=== PATIENT | male | born 1950 | race Caucasian/White ===

== ENCOUNTER → 2017-06-21 | Outpatient (CLI) | payer MEDICARE, BC | LOC: PLAB 09:24 | PROVIDERS: ATTEND Ophthalmology | DX: H57.12 Ocular pain, left eye (principal) | CPT/HCPCS: 36415; 85652; 86140 ==

== ENCOUNTER 2018-03-10 05:19 | Inpatient (IN) ==
--- NOTE | 2018-03-05 16:28 | MH ---
cc: Gera Phillips MD DATE OF ADMISSION: 03/10/2018 ADMITTING DIAGNOSIS: Osteoarthritic degeneration, right hip, now being admitted for right total hip arthroplasty. HISTORY OF PRESENT ILLNESS: This pleasant 67-year-old male, known diabetic, is being admitted today for right total hip arthroplasty due to severe pain from osteoarthritic degeneration, right hip. PAST MEDICAL HISTORY: He has hypertension, heart disease, hyperlipidemia, type 2 diabetes. CURRENT MEDICATIONS: 1. Amitriptyline. 2. Benzonatate. 3. Breo Ellipta. 4. Diltiazem. 5. Farxiga. 6. Glimepiride. 7. Levofloxacin. 8. Oseltamivir. . 9. Oxycodone. 10. ProAir. 11. Fenofibrate. 12. Atorvastatin. PAST SURGICAL HISTORY: Rotator cuff repair and a bilateral knee replacement. REVIEW OF SYSTEMS: Noncontributory. FAMILY HISTORY: Noncontributory. SOCIAL HISTORY: Does not smoke or drink. ALLERGIES: NO KNOWN ALLERGIES. PHYSICAL EXAMINATION: GENERAL: We find a 67-year-old male, well-developed, well-nourished, oriented x 3, complaining of pain in his right hip. VITAL SIGNS: Blood pressure 130/70, pulse 90 and regular, respirations 16, temperature 98.4, pulse oximetry 97% on room air. HEENT: Eyes PERRLA, EOMI. Ears, nose, mouth clear. NECK: Supple. LUNGS: Clear. HEART: Regular rate. ABDOMEN: Soft, positive bowel sounds, nontender. EXTREMITIES: Reveal the right hip had decreased range of motion. He is neurovascularly intact to his toes. IMPRESSION: Severe painful osteoarthritic degeneration, right hip. PLAN: Admission for right total hip arthroplasty today. The patient was given prescription for postoperative pain control in the office. MD LAWANDA Kahn/tatiana , 04:05 PM , 04:11 PM
[2018-03-10] MEDS ORDERED: Chlorhexidine Gluconate 2% 1 Pack (2 Cloths) TOPICAL ONE (05:56)
[2018-03-10] MEDS ORDERED: Metoprolol Tartrate 25 MG Tablet PO ONE (05:56)
[2018-03-10] MEDS ORDERED: Chlorhexidine 4% Topical 120 APPLIC/120 ML Bottle TOPICAL SCH (06:00)
[2018-03-10] MEDS ORDERED: Sodium Chlor 0.9% Inj 80 ML, Bupivacaine Liposo PF 1.3% Inj 20 ML, Bupivacaine PF 0.25%... P-ARTICULR SCH ×3 (06:00)
[2018-03-10] MEDS ORDERED: SODIUM CHLOR 0.9% IV.SIG SCH (06:00)
[2018-03-10] MEDS ORDERED: ceFAZolin 2 GM Premix Inj 2 GM/50 ML PIGGYBACK IV.SIG SCH (06:00)
[2018-03-10] MEDS ORDERED: Sodium Chlor 0.9% Inj 500 ML IV.SIG SCH (06:00)
[2018-03-10] MEDS ORDERED: TRANEXAMIC ACID IV.SIG SCH (06:00)
[2018-03-10] MEDS ORDERED: Vancomycin Inj 1,000 MG in Sodium Chlor 0.9% Inj 250 ML IV.SIG SCH (06:00)
[2018-03-10] MEDS ORDERED: Bisacodyl 10 MG Supp RECTAL PRN (07:35)
[2018-03-10] MEDS ORDERED: Post-op Orders (for Pharmacy) OTHER STA (07:35)
[2018-03-10] MEDS ORDERED: Morphine Inj 4 MG/ML Vial IV.PUSH PRN (07:35)
[2018-03-10] MEDS ORDERED: Phenylephrine/NS 1000 MCG/10ML Syringe IV.PUSH ONE (07:38)
[2018-03-10] MEDS ORDERED: Neostigmine Inj 5 MG/5 ML Syringe IV.PUSH ONE (07:38)
[2018-03-10] MEDS ORDERED: Glycopyrrolate Inj 1 MG/5 ML Syringe IV.PUSH ONE (07:38)
[2018-03-10] MEDS ORDERED: Lidocaine PF 1% Inj 5 ML Syringe OTHER ONE (07:38)
[2018-03-10] MEDS ORDERED: Esmolol Bolus Inj 100 MG/10 ML Vial IV.PUSH ONE (07:38)
[2018-03-10] MEDS ORDERED: Non-Formulary Drug (Omega 3-Dha-Epa-Fish Oil [Fish Oil] 1 CAP) PO SCH (09:00)
--- NOTE | 2018-03-10 10:40 | P.DCO ---
- Diagnosis (1) Status post total replacement of right hip Status: Acute - Physical Therapy Order: Evaluate and treat, Improve ambulation, Strength and gait training - Home Health Nursing Order: Medical education, Nursing assessment with vital signs - Case Management Consult Yes - Certification I have seen patient Jamal Armendariz on 03/10/18. My clinical findings support the need for the requested home health care services because: High risk of falls I certify that my clinical findings support that this patient is homebound because: Post-op weakness, Unsteady gait/balance, Unsafe to leave home unassisted
[2018-03-10] MEDS ORDERED: fentaNYL Citrate Inj 100 MCG/2 ML Ampul ONE (10:45)
[2018-03-10] MEDS ORDERED: Tranexamic Acid Inj 1,000 MG in Sodium Chlor 0.9% Inj 100 ML IV.SIG SCH (11:00)
[2018-03-10] MEDS ORDERED: *morphine SULFATE 4 MG/ML PERIprocedure ONLY ONE ×3 (11:25→13:23)
--- NOTE | 2018-03-10 11:31 | XR ---
EXAM DATE: 03/10/2018 11:15 AM EDT AGE/SEX: 67 years / Male INDICATIONS: Post-op right total hip arthroplasty. CLINICAL DATA: This is the patient's initial encounter. Patient reports that signs and symptoms have been present for 1 day and indicates a pain score of 7/10. MEDICAL/SURGICAL HISTORY: Hypertension. Diabetes mellitus type II. Total knee replacement, lef t. Total knee replacement, right. COMPARISON: POI, XR HIP W/ AP PELVIS, BILATERAL, 04/05/2017. . FINDINGS: A single AP view of the right hip was obtained and demonstrates the patient is status post arthroplas ty. The femoral and acetabular components are intact and in normal alignment. There is soft tissue sw elling and gas. CONCLUSION: Negative postoperative changes status post right hip arthroplasty. Electronically signed by: Mynor Jaramillo MD 03/10/2018 11:29 AM EDT
[2018-03-10] MEDS ORDERED: *HYDROmorphone PF Inj 1 MG/ML Ampul PERIprocedural Use ONLY ONE ×2 (11:46→12:02)
--- NOTE | 2018-03-10 12:38 | MP ---
cc: Gera Phillips MD DATE OF OPERATION: 03/10/2018 DATE OF SURGERY: 03/10/2018 PREOPERATIVE DIAGNOSIS: Osteoarthritic degeneration, right hip. POSTOPERATIVE DIAGNOSIS: Osteoarthritic degeneration, right hip. SURGERY PERFORMED/COMPONENTS UTILIZED: Right total hip arthroplasty using Aesculap components, size 13 standard stem with a size 36 -4 ceramic head, a 56 x 36 E-liner and a size 56 cup with on 28 mm x 6.5 mm screw. SURGEON: Gera Phillips MD HAND LAMINATOR: Sun Paul APRN. ANESTHESIA: Spinal. PROCEDURE FOLLOWS: The patient was brought to the Operating Room, where after successful induction of spinal anesthesia was placed on the operating room table in the right lateral decubitus position. The right hip, thigh and leg were prepped and draped in the usual manner. A posterolateral approach was then utilized by making an incision over the proximal portion of the femur lateral aspect, carried across the greater trochanter, carried posterior in a curved incision toward the buttock. The incision was carried down through the subcutaneous tissue, through the fibers of the tensor fascia maia and gluteus samra to expose the greater trochanteric bursa. This was then removed by sharp and blunt dissection. The hip was then internally rotated to expose the insertions of the short external rotators of the hip and were incised at their insertion into the greater trochanter and reflected posterior to protect the sciatic nerve. These were held with a Charnley retractor to better visualize the hip joint. The capsule was identified and removed by sharp dissection. The hip was then dislocated by internal rotation and flexion of the hip. The femoral calcar was then measured using the trial components for the appropriate length cut of the neck using an oscillating saw. After the cut was made the head was removed. The acetabulum was then approached and measured, the acetabulum reamed with the acetabular reamers. Next, the femoral calcar was approached by first inserting a canal finder followed by rigid reamers, followed by a cookie-cutter to the appropriate size, in this case being a #15. The broach was left in place and a planer used to plane the calcar to a smooth finish. The broach was then removed. The trial components were then inserted into place, the hip reduced, found to track smoothly with no evidence of subluxation or dislocation. All trial components were removed. The wound was irrigated copiously with antibiotic solution and Water Pik. The actual components were then inserted and impacted into place using Aesculap components, size 13 standard stem with a size 36 -4 ceramic head, a 56 x 36 E-liner and a size 56 cup with on 28 mm x 6.5 mm screw. the hip was reduced, found to track smoothly with no evidence of subluxation or dislocation. The wound was irrigated copiously with antibiotic solution, meticulous hemostasis achieved. The capsule was then approximated using interrupted #1 Vicryl suture, two Hemovacs inserted. The deep fascia, the tensor fascia maia and gluteus samra were approximated using running #1 Vicryl suture, the subcutaneous tissue approximated using interrupted 2-0 Vicryl suture and the skin approximated with elaine. Wet and dry dressing was applied to the wound followed by Xeroform gauze and sterile dressing. An abduction pillow splint was then applied as well. Estimated blood loss was [] mL. Sponge and suture counts were correct. The patient tolerated the procedure well and left the Operating Room in satisfactory condition. The deep capsule approximated with interrupted number 1-Vicryl, 60 mL of mixture of Exparel, normal saline and 0.25% Marcaine plain injected around the anterior hip joint for extra pain control. Sciatic nerve identified and protected throughout the procedure. Meticulous hemostasis achieved. The deep fascia approximated with running #2 Quill. Subcutaneous tissue approximated using interrupted and running 2-0 and 3-0 Quill and Prineo dressing and abduction pillow brace and knee immobilizer. No drain utilized. ESTIMATED BLOOD LOSS: 200 mL. COUNTS: Sponge and needle count correct. The patient tolerated the procedure well and left the operating room in satisfactory condition. Sun Paul APRN was present during the entire procedure to include patient positioning and the procedure. The medical necessity of the Nurse Practitioner Cellophane Wrapping Examiner was indicated in this case due to the surgical complexity of the case itself. During the surgical case, the surgical product sales consultant was working the back table while my program support assistant SID was directly assisting me. Khanh. MD LAWANDA Jones/naima , 10:21 AM , 10:26 AM NALLELY
--- NOTE | 2018-03-10 13:47 | P.CON ---
History of Present Illness Reason for Consult: Orthopedic surgery Primary Care Provider: Seng Pulido Chief Complaint: Medical management History of Present Illness: 67-year-old man for past medical history of diabetes type 2, CAD, previous history of bilateral knee surgeries was taken to the OR today for right knee arthroplasty secondary to severe hip OA. Patient states, since 2014 after his right total knee replacement he started having CVA right hip pain which got worse over the past few years. Now the pain is unbearable and affecting his daily living of activity including ambulation. He has tried corticosteroid shot , physical therapy and NSAIDs without any significant improvement. Patient was seen in PACU, denies any chest pain or shortness of breath. Appears stable. Review of Systems All other systems reviewed negative except as stated in HPI PMFSH - History History Provided By: Patient - Medical History Medical History: Medical History (Last Reviewed 03/10/18 @ 12:44 by Candido Ayala) Arthritis Asthma Back pain Cataracts, bilateral DDD (degenerative disc disease) Diabetes Diminished hearing Herniated disc High cholesterol History of anesthesia reaction History of rectal cancer Hypertension Joint pain Kidney stones Wears glasses - Surgical History Surgical History: Surgical History (Last Reviewed 03/10/18 @ 12:44 by Candido Ayala) History of arthroplasty of both knees History of cardiac catheterization History of carpal tunnel surgery of right wrist History of foot surgery History of hand surgery History of heart artery stent History of laminectomy History of repair of rotator cuff - Tobacco History Second Hand Smoke Exposure: No Tobacco Use In Past 30 Days: No Smoking Status: Former smoker - Alcohol History How Often Do You Have a Drink Containing Alcohol: Monthly or less - Substance Use History Substance History: No History of Abuse - Travel History Recent Travel in the [place] Within the Last 8 Weeks: No Recent Travel Out of the Country Within the Last 8 Weeks: No Medications and Allergies Active Medications: Active Medications Hydrocodone Bitart/Acetaminophen (Cecil 7.5/325) 1 tab PO Q4H PRN PRN Reason: PAIN LESS THAN 5 ON SCALE Hydrocodone Bitart/Acetaminophen (Cecil 7.5/325) 2 tab PO Q6H PRN PRN Reason: PAIN SCALE 5 TO 10 Al Hydroxide/Mg Hydroxide (Milk Of Magnesia Liq) 30 ml PO BID PRN PRN Reason: Mild Constipation Albuterol (Ventolin Hfa Inh) 1 puff INH Q6H PRN PRN Reason: Shortness Of Breath Apixaban (Eliquis) 2.5 mg PO BID [facility] Atorvastatin Calcium (Lipitor) 10 mg PO HS [facility] Bisacodyl (Dulcolax Supp) 10 mg RECTAL DAILY PRN PRN Reason: SEVERE CONSITIPATION Chlorhexidine Gluconate (Hibiclens 4% Topical) 1 applicatio TOPICAL ONCE [facility] Stop: 03/14/18 05:59 Sodium Chloride 80 ml/Bupivacaine Liposome 20 ml/Bupivacaine HCl 20 ml 0 ml P- ARTICULR ONCE [facility] Stop: 03/10/18 14:00 Last Admin: 03/10/18 09:49 Dose: 60 bag Diltiazem HCl (Cardizem Cd 24hr) 180 mg PO DAILY [facility] Famotidine (Pepcid) 20 mg PO HS [facility] Fenofibrate (Tricor) 145 mg PO DAILY [facility] Furosemide (Lasix) 20 mg PO DAILY [facility] Cefazolin Sodium/Dextrose (Ancef 2 Gm Premix Inj) 2 gm in 50 mls @ 100 mls/hr IV.SIG CHAIN CARRIER [facility] Stop: 03/14/18 05:59 Last Infusion: 03/10/18 08:15 Dose: Infused Tranexamic Acid 1,113 mg/ (Sodium Chloride) 111.13 mls @ 200 mls/hr IV.SIG ONCE [facility] Stop: 03/10/18 14:00 Last Infusion: 03/10/18 08:30 Dose: Infused Vancomycin HCl 1,000 mg/ (Sodium Chloride) 250 mls @ 250 mls/hr IV.SIG CHAIN CARRIER [facility] Stop: 03/13/18 05:52 Last Infusion: 03/10/18 08:54 Dose: 250 mls/hr Lactated Ringer's (Lr 1000 Ml Inj) 1,000 mls @ 30 mls/hr IV.SIG .Q24H [facility] Stop: 03/11/18 05:59 Last Infusion: 03/10/18 09:05 Dose: Infused Sodium Chloride (Ns Inj) 500 mls @ 30 mls/hr IV.SIG .Q10H [facility] Last Admin: 03/10/18 06:38 Dose: Not Given Cefazolin Sodium 1,000 mg/ (Sodium Chloride) 110 mls @ 220 mls/hr IV.SIG Q6H [facility] Stop: 03/11/18 02:29 Lactated Ringer's (Lr 1000 Ml Inj) 1,000 mls @ 80 mls/hr IV.CONT .[id number] [facility] Last Admin: 03/10/18 09:06 Dose: 80 mls/hr Tranexamic Acid 1,000 mg/ (Sodium Chloride) 110 mls @ 200 mls/hr IV.SIG ONCE [facility] Stop: 03/10/18 17:00 Last Infusion: 03/10/18 11:55 Dose: Infused Lactulose (Lactulose Liq) 30 ml PO DAILY PRN PRN Reason: SEVERE CONSITIPATION Lisinopril (Prinivil) 10 mg PO DAILY [facility] Metformin HCl (Glucophage) 1,000 mg PO BID [facility] Miscellaneous Information ([facility] [place] [facility]) 0 each OTHER UNSCH PRN PRN Reason: SEE LABEL COMMENTS Stop: 03/11/18 10:39 Morphine Sulfate (Morphine Inj) 2 mg IV.PUSH Q3H PRN PRN Reason: BREAKTHROUGH PAIN Multivitamins/Minerals (Theragran-M) 1 tab PO BID [facility] Stop: 05/09/18 08:59 Ondansetron HCl (Zofran Odt) 4 mg PO Q6H PRN PRN Reason: NAUSEA OR VOMITING Senna/Docusate Sodium (Anila-Colace) 1 tab PO BID [facility] Sennosides (Senokot) 17.2 mg PO BID PRN PRN Reason: Moderate Constipation Sodium Chloride (Akins Nasal Atco) 1 spray EACH NARE Q4H [facility] Sodium Chloride (Ns Flush) 2 ml IV.FLUSH BID [facility] Sodium Chloride (Ns Flush) 2 ml IV.FLUSH PRN PRN PRN Reason: FLUSH AFTER USING IV ACCESS Allergies Allergy/AdvReac Type Severity Reaction Status Date / Time theophylline Allergy Severe Hives Verified 03/10/18 06:06 Home Medications Medication Instructions Recorded Confirmed Type albuterol sulfate 1 puff INHALATION Q6H PRN 03/03/18 03/10/18 History aspirin [Adult Low Dose Aspirin] 81 mg PO DAILY 03/03/18 03/10/18 History atorvastatin 10 mg PO HS 03/03/18 03/10/18 History clopidogrel 75 mg PO DAILY 03/03/18 03/10/18 History diltiazem HCl 180 mg PO DAILY 03/03/18 03/10/18 History famotidine 20 mg PO HS 03/03/18 03/10/18 History fenofibrate nanocrystallized 145 mg PO DAILY 03/03/18 03/10/18 History furosemide 20 mg PO DAILY 03/03/18 03/10/18 History lisinopril 10 mg PO DAILY 03/03/18 03/10/18 History metformin 1,000 mg PO BID 03/03/18 03/10/18 History omega 4-mls-kcm-fish oil [Fish Oil] 1 cap PO DAILY 03/03/18 03/10/18 History oxycodone-acetaminophen [Endocet] 1 tab PO Q4H PRN 03/03/18 03/10/18 History sodium chloride [Saline Nose] 1 spray INTRANASAL Q4H 03/03/18 03/10/18 History vit C,P-Bq-aouyx-lutein-zeaxan 1 tab PO BID 03/03/18 03/03/18 History [PreserVision AREDS-2] Physical Exam Vital signs: Vital Signs 03/10/18 06:17 03/10/18 10:38 03/10/18 10:39 Temperature 99.4 F 97.8 F Pulse Rate 93 H 88 88 Respiratory Rate 20 16 Blood Pressure 155/68 H 132/58 L Pulse Oximetry 98 97 97 03/10/18 10:45 03/10/18 10:46 03/10/18 11:00 Temperature Pulse Rate 94 H 93 H 87 Respiratory Rate 16 17 16 Blood Pressure 90/51 L 96/54 L 98/52 L Pulse Oximetry 96 96 94 L 03/10/18 11:09 03/10/18 11:15 03/10/18 11:24 Temperature 97.7 F Pulse Rate 91 H 93 H Respiratory Rate 17 15 15 Blood Pressure 92/55 L 112/58 L Pulse Oximetry 94 L 93 L 03/10/18 11:28 03/10/18 11:31 03/10/18 12:33 Temperature Pulse Rate 95 H 89 Respiratory Rate 16 15 Blood Pressure 106/55 L 106/55 L Pulse Oximetry 97 96 98 Intake & Output 03/09/18 03/10/18 03/10/18 18:59 06:59 18:59 Intake Total 2771.13 / 2771.13 Output Total 200 / 200 Balance 2571.13 / 2571.13 Weight 111.3 kg Intake: IV 1271.13 / 1271.13 LR 1000 mL Inj 1,000 ML @ 30 1000 / 1000 mls/hr IV.SIG .Q24H [facility] Rx#: [id number] Cyklokapron Inj 1,000 MG In NS 221.13 / 221.13 Inj 100 ML @ 200 mls/hr IV.SIG ONCE [facility] Rx#:[id number] Ancef 2 GM Premix Inj 2 gm In 50 / 50 50 ml @ 100 mls/hr IV.SIG CHAIN CARRIER [facility] Rx#:[id number] Anesthesia Amount 1500 / 1500 Output: Estimated Blood Loss 200 / 200 Other: Weight On Admission 111.3 kg Narrative: GENERAL: NAD SKIN: Warm and dry. HEAD: Atraumatic. Normocephalic. EYES: Pupils equal and round. No scleral icterus. No injection or drainage. ENT: No nasal bleeding or discharge. Mucous membranes pink and moist. NECK: Trachea midline. No JVD. CARDIOVASCULAR: Regular rate and rhythm. RESPIRATORY: No accessory muscle use. Clear to auscultation. Breath sounds equal bilaterally. GASTROINTESTINAL: Abdomen soft, non-tender, nondistended. Hepatic and splenic margins not palpable. MUSCULOSKELETAL: Extremities without clubbing, cyanosis, or edema. No obvious deformities. dressing over right hip-neurovascular intact NEUROLOGICAL: Awake and alert. No obvious cranial nerve deficits. Motor grossly within normal limits. Five out of 5 muscle strength in the arms and legs. Normal speech. PSYCHIATRIC: Appropriate mood and affect; insight and judgment normal. Assessment and Plan - Plan 67-year-old man with Right hip OA Status post right total hip arthroplasty March 10, 2018 Management per orthopedic surgery Pain management accordingly Lan for DVT prophylaxis PT consult to treat and eval Diabetes type 2 Resume metformin and start insulin sliding scale with fingerstick blood glucose monitoring History of CAD, hypertension, hyperlipidemia and other chronic medical conditions Continue outpatient medications DVT prophylaxis: Lan Thank you for this consultation
[2018-03-10] MEDS: ceFAZolin Inj 1,000 MG in Sodium Chlor 0.9% Inj 100 ML IV.SIG SCH ×2 (14:34→22:14)
--- NOTE | 2018-03-10 17:17 | P.BOP ---
- Preoperative Diagnosis (1) Osteoarthritis of right hip - Postoperative Diagnosis (1) Status post total replacement of right hip Date of procedure: 03/10/18 Procedure: Right Total Hip Arthroplasty Implants: see implant record Anesthesia: GETA Surgeon: Gera Phillips MD Conventions Assistant: Sun Paul Estimated blood loss (mL): 200 Urine output (mL): 0 (no zhao) Pathology: none sent Condition: stable Disposition: PACU
[2018-03-10] MEDS: Fenofibrate 145 MG Tablet PO SCH (22:06)
[2018-03-10] MEDS: Furosemide 20 MG Tablet PO SCH (22:06)
[2018-03-10] MEDS: Sodium Chloride 0.65% Nasal Spray 45 ML Bottle EACH NARE SCH ×2 (22:06→22:17)
[2018-03-10] MEDS: Multivitamin/Minerals Therapeutic Tablet PO SCH ×2 (22:06→22:15)
[2018-03-10] MEDS: Senna/Docusate Sodium 8.6/50 MG Tablet PO SCH ×2 (22:06→22:14)
[2018-03-10] MEDS: Famotidine 20 MG Tablet PO SCH (22:15)
[2018-03-11] MEDS: Sodium Chloride 0.65% Nasal Spray 45 ML Bottle EACH NARE SCH ×6 (02:28→21:27)
[2018-03-11] MEDS: ceFAZolin Inj 1,000 MG in Sodium Chlor 0.9% Inj 100 ML IV.SIG SCH (02:28)
[2018-03-11 07:26] LABS: Baso # (Auto) 0.1 th/mm3 (0.0-0.2); Baso % (Auto) 0.6 % (0.0-2.0); Eos % (Auto) 0.2 % (0.0-4.0); Hematocrit 39.1 % (39.0-51.0); Hemoglobin 13.2 gm/dL (13.0-17.0); Lymph # (Auto) 0.9 th/mm3 (1.0-4.8); Lymph % (Auto) 7.8 % (9.0-44.0); Mean Corpuscular HGB Conc 33.8 % (32.0-36.0); Mean Corpuscular Hemoglobin 31.4 pg (27.0-34.0); Mean Corpuscular Volume 93.1 fL (80.0-100.0); Mean Platelet Volume 8.3 fL (7.0-11.0); Mono % (Auto) 8.5 % (0.0-8.0); Neut # (Auto) 9.7 th/mm3 (1.8-7.7); Neut % (Auto) 82.9 % (16.0-70.0); Platelet Count 180 th/mm3 (150-450); Red Cell Distribution Width 15.1 % (11.6-17.2); White Blood Count 11.7 th/mm3 (4.0-11.0)
[2018-03-11 07:47] LABS: Alanine Aminotransferase 90 U/L (12-78); Albumin 3.7 g/dL (3.4-5.0); Anion Gap 8 meq/L (5-15); Aspartate Aminotransferase 61 U/L (15-37); Blood Urea Nitrogen 24 mg/dL (7-18); Calcium 8.7 mg/dL (8.5-10.1); Carbon Dioxide 27.2 meq/L (21.0-32.0); Chloride 106 meq/L (98-107); Glomerular Filtration Rate 75 mL/min (>89); Glucose,Random 118 mg/dL (74-106); Potassium 4.5 meq/L (3.5-5.1); Sodium 141 meq/L (136-145)
[2018-03-11 07:49] LABS: Alkaline Phosphatase 54 U/L (45-117); Total Protein 6.7 g/dL (6.4-8.2)
[2018-03-11] MEDS: Fenofibrate 145 MG Tablet PO SCH (09:12)
[2018-03-11] MEDS: dilTIAZem CD 180 MG Capsule PO SCH (09:12)
[2018-03-11] MEDS: Furosemide 20 MG Tablet PO SCH (09:12)
[2018-03-11] MEDS: Lisinopril 10 MG Tablet PO SCH (09:12)
[2018-03-11] MEDS: Senna/Docusate Sodium 8.6/50 MG Tablet PO SCH ×2 (09:13→21:53)
[2018-03-11] MEDS: Multivitamin/Minerals Therapeutic Tablet PO SCH ×2 (09:13→21:52)
--- NOTE | 2018-03-11 10:07 | P.PNOP ---
Subjective Interval history: Patient mostly comfortable today. Still complaining of some discomfort around the incision site and anterior thigh and groin. Physical Exam Vital signs: Vital Signs 03/10/18 10:38 03/10/18 10:39 03/10/18 10:45 Temperature 97.8 F Pulse Rate 88 88 94 H Respiratory Rate 16 16 Blood Pressure 132/58 L 90/51 L Pulse Oximetry 97 97 96 03/10/18 10:46 03/10/18 11:00 03/10/18 11:09 Temperature Pulse Rate 93 H 87 Respiratory Rate 17 16 17 Blood Pressure 96/54 L 98/52 L Pulse Oximetry 96 94 L 03/10/18 11:15 03/10/18 11:24 03/10/18 11:28 Temperature 97.7 F Pulse Rate 91 H 93 H Respiratory Rate 15 15 Blood Pressure 92/55 L 112/58 L Pulse Oximetry 94 L 93 L 97 03/10/18 11:31 03/10/18 11:45 03/10/18 12:00 Temperature Pulse Rate 95 H 96 H 92 H Respiratory Rate 16 16 15 Blood Pressure 106/55 L 108/56 L 120/61 Pulse Oximetry 96 96 95 03/10/18 12:16 03/10/18 12:33 03/10/18 13:00 Temperature 97.9 F Pulse Rate 95 H 89 87 Respiratory Rate 16 15 16 Blood Pressure 104/45 L 106/55 L 107/53 L Pulse Oximetry 97 98 95 03/10/18 13:35 03/10/18 16:00 03/10/18 20:25 Temperature 98.5 F 98.4 F Pulse Rate 91 H 115 H Respiratory Rate 18 18 Blood Pressure 130/60 132/65 Pulse Oximetry 97 98 98 03/10/18 22:00 03/10/18 23:09 03/11/18 03:24 Temperature 97.4 F L 98.1 F Pulse Rate 89 102 H Respiratory Rate 18 18 Blood Pressure 117/63 114/59 L Pulse Oximetry 95 95 96 03/11/18 08:00 Temperature 98.3 F Pulse Rate 95 H Respiratory Rate 18 Blood Pressure 128/61 Pulse Oximetry 100 Intake & Output 03/10/18 03/11/18 03/11/18 18:59 06:59 18:59 Intake Total 2881.13 / 2881.13 1700 / 1700 Output Total 200 / 200 675 / 675 Balance 2681.13 / 2681.13 1025 / 1025 Weight 111.3 kg 111.3 kg Intake: IV 1381.13 / 1381.13 1220 / 1220 LR 1000 mL Inj 1,000 ML @ 80 1000 / 1000 mls/hr IV.CONT .[id number] [facility] Rx# :[id number] LR 1000 mL Inj 1,000 ML @ 30 1000 / 1000 mls/hr IV.SIG .Q24H [facility] Rx#: [id number] Cyklokapron Inj 1,000 MG In NS 221.13 / 221.13 Inj 100 ML @ 200 mls/hr IV.SIG ONCE [facility] Rx#:[id number] Ancef 2 GM Premix Inj 2 gm In 50 / 50 50 ml @ 100 mls/hr IV.SIG LIFT MECHANIC [facility] Rx#:[id number] Ancef Inj 1,000 MG In NS Inj 110 / 110 220 / 220 100 ML @ 220 mls/hr IV.SIG Q6H [facility] Rx#:[id number] Oral 480 / 480 Anesthesia Amount 1500 / 1500 Output: Urine 675 / 675 Estimated Blood Loss 200 / 200 Other: # Voids 1 Date of Last Bowel Movement 03/09/18 03/09/18 # Bowel Movements 0 - Constitutional no acute distress Results - Labs CBC & Chem 7: 03/11/18 05:36 03/11/18 05:36 Laboratory Results - last 24 hr 03/10/18 03/11/18 03/11/18 22:12 05:36 05:36 WBC 11.7 H RBC 4.20 L Hgb 13.2 Hct 39.1 MCV 93.1 MCH 31.4 MCHC 33.8 RDW 15.1 Plt Count 180 MPV 8.3 Neut % (Auto) 82.9 H Lymph % (Auto) 7.8 L [place] % (Auto) 8.5 H Eos % (Auto) 0.2 Baso % (Auto) 0.6 Neut # (Auto) 9.7 H Lymph # (Auto) 0.9 L [place] # (Auto) 1.0 H Eos # (Auto) 0.0 Baso # (Auto) 0.1 WBC Differential . Differential Comment Auto diff final Sodium 141 Potassium 4.5 Chloride 106 Carbon Dioxide 27.2 Anion Gap 8 BUN 24 H Creatinine 1.00 Estimated GFR 75 L POC Glucose 146 H Random Glucose 118 H Calcium 8.7 Total Bilirubin 1.0 AST 61 H ALT 90 H Alkaline Phosphatase 54 Total Protein 6.7 Albumin 3.7 - Imaging Impressions Hip X-Ray 03/10/18 07:35 CONCLUSION: Negative postoperative changes status post right hip arthroplasty. Assessment and Plan - Problem List (1) Status post total replacement of right hip Code(s): Z96.641 - Presence of right artificial hip joint Status: Acute - Attending Attestation Attending Attestation: Patient sitting up in chair at present time. Dressing is dry and intact he is neurovascularly intact to his toes with no calf tenderness. Plan is for the patient to undergo medical management for his COPD. Once he gets off his oxygen he should be able to go home with home health care and physical therapy.
--- NOTE | 2018-03-11 11:28 | P.PN ---
Subjective Interval history: Patient seen and examined For liter nasal cannula Patient had episode of hypoxemia during PT, No chest pain, no shortness of breath. Physical Exam Vital signs: Vital Signs 03/10/18 11:28 03/10/18 11:31 03/10/18 11:45 Temperature Pulse Rate 95 H 96 H Respiratory Rate 16 16 Blood Pressure 106/55 L 108/56 L Pulse Oximetry 97 96 96 03/10/18 12:00 03/10/18 12:16 03/10/18 12:33 Temperature Pulse Rate 92 H 95 H 89 Respiratory Rate 15 16 15 Blood Pressure 120/61 104/45 L 106/55 L Pulse Oximetry 95 97 98 03/10/18 13:00 03/10/18 13:35 03/10/18 16:00 Temperature 97.9 F 98.5 F Pulse Rate 87 91 H Respiratory Rate 16 18 Blood Pressure 107/53 L 130/60 Pulse Oximetry 95 97 98 03/10/18 20:25 03/10/18 22:00 03/10/18 23:09 Temperature 98.4 F 97.4 F L Pulse Rate 115 H 89 Respiratory Rate 18 18 Blood Pressure 132/65 117/63 Pulse Oximetry 98 95 95 03/11/18 03:24 03/11/18 08:00 Temperature 98.1 F 98.3 F Pulse Rate 102 H 95 H Respiratory Rate 18 18 Blood Pressure 114/59 L 128/61 Pulse Oximetry 96 100 Intake & Output 03/10/18 03/11/18 03/11/18 18:59 06:59 18:59 Intake Total 2881.13 / 2881.13 1700 / 1700 1000 / 1000 Output Total 200 / 200 675 / 675 Balance 2681.13 / 2681.13 1025 / 1025 1000 / 1000 Weight 111.3 kg 111.3 kg Intake: IV 1381.13 / 1381.13 1220 / 1220 1000 / 1000 LR 1000 mL Inj 1,000 ML @ 80 1000 / 1000 1000 / 1000 mls/hr IV.CONT .[id number] [facility] Rx# :[id number] LR 1000 mL Inj 1,000 ML @ 30 1000 / 1000 mls/hr IV.SIG .Q24H [facility] Rx#: [id number] Cyklokapron Inj 1,000 MG In NS 221.13 / 221.13 Inj 100 ML @ 200 mls/hr IV.SIG ONCE [facility] Rx#:[id number] Ancef 2 GM Premix Inj 2 gm In 50 / 50 50 ml @ 100 mls/hr IV.SIG CLINICAL ACCOUNT LIAISON [facility] Rx#:[id number] Ancef Inj 1,000 MG In NS Inj 110 / 110 220 / 220 100 ML @ 220 mls/hr IV.SIG Q6H [facility] Rx#:[id number] Oral 480 / 480 Anesthesia Amount 1500 / 1500 Output: Urine 675 / 675 Estimated Blood Loss 200 / 200 Other: # Voids 1 Date of Last Bowel Movement 03/09/18 03/09/18 # Bowel Movements 0 Narrative: GENERAL: NAD SKIN: Warm and dry. HEAD: Normocephalic. EYES: No scleral icterus. No injection or drainage. NECK: Supple, trachea midline. No JVD or lymphadenopathy. CARDIOVASCULAR: Regular rate and rhythm without murmurs, gallops, or rubs. RESPIRATORY: Breath sounds equal bilaterally. No accessory muscle use. GASTROINTESTINAL: Abdomen soft, non-tender, nondistended. MUSCULOSKELETAL: No cyanosis, or edema. BACK: Nontender without obvious deformity. No CVA tenderness. Results - Labs CBC & Chem 7: 03/11/18 05:36 03/11/18 05:36 Laboratory Results - last 24 hr 03/10/18 03/11/18 03/11/18 22:12 05:36 05:36 WBC 11.7 H RBC 4.20 L Hgb 13.2 Hct 39.1 MCV 93.1 MCH 31.4 MCHC 33.8 RDW 15.1 Plt Count 180 MPV 8.3 Neut % (Auto) 82.9 H Lymph % (Auto) 7.8 L [place] % (Auto) 8.5 H Eos % (Auto) 0.2 Baso % (Auto) 0.6 Neut # (Auto) 9.7 H Lymph # (Auto) 0.9 L [place] # (Auto) 1.0 H Eos # (Auto) 0.0 Baso # (Auto) 0.1 WBC Differential . Differential Comment Auto diff final Sodium 141 Potassium 4.5 Chloride 106 Carbon Dioxide 27.2 Anion Gap 8 BUN 24 H Creatinine 1.00 Estimated GFR 75 L POC Glucose 146 H Random Glucose 118 H Calcium 8.7 Total Bilirubin 1.0 AST 61 H ALT 90 H Alkaline Phosphatase 54 Total Protein 6.7 Albumin 3.7 - Imaging Impressions Hip X-Ray 03/10/18 07:35 CONCLUSION: Negative postoperative changes status post right hip arthroplasty. Assessment and Plan - Plan 67-year-old man with Right hip OA Status post right total hip arthroplasty March 10, 2018 Management per orthopedic surgery Pain management accordingly Eliquis for DVT prophylaxis PT to treat and eval Hypoxia Shortness of breath Encourage incentive spirometry use, DuoNeb as needed Diabetes type 2 Continue metformin and insulin sliding scale with fingerstick blood glucose monitoring History of CAD, hypertension, hyperlipidemia and other chronic medical conditions Continue outpatient medications DVT prophylaxis: Eliquis
[2018-03-11] MEDS: Famotidine 20 MG Tablet PO SCH (21:53)
[2018-03-12] MEDS: Sodium Chloride 0.65% Nasal Spray 45 ML Bottle EACH NARE SCH ×6 (03:35→23:17)
[2018-03-12 05:41] LABS: Hematocrit 36.9 % (39.0-51.0); Hemoglobin 12.6 gm/dL (13.0-17.0)
--- NOTE | 2018-03-12 08:04 | P.PNOP ---
Subjective Interval history: Patient still uncomfortable today but otherwise doing well. Physical Exam Vital signs: Vital Signs 03/11/18 12:00 03/11/18 15:33 03/11/18 16:00 Temperature 98.6 F 99.2 F Pulse Rate 110 H 101 H 101 H Respiratory Rate 20 16 18 Blood Pressure 119/71 120/57 L Pulse Oximetry 99 98 03/11/18 16:52 03/11/18 20:00 03/12/18 00:00 Temperature 98.6 F 100.2 F H Pulse Rate 111 H 107 H Respiratory Rate 19 19 Blood Pressure 116/59 L 128/58 L Pulse Oximetry 98 99 100 03/12/18 00:18 03/12/18 02:00 03/12/18 04:00 Temperature 99.4 F Pulse Rate 96 H Respiratory Rate 19 19 18 Blood Pressure 141/63 H Pulse Oximetry 98 Intake & Output 03/11/18 03/12/18 03/12/18 18:59 06:59 18:59 Intake Total 2245 / 2245 Output Total 1100 / 1100 Balance 2245 / 2245 -1100 / -1100 Weight 111 kg Intake: IV 1000 / 1000 LR 1000 mL Inj 1,000 ML @ 80 1000 / 1000 mls/hr IV.CONT .[id number] [facility] Rx# :[id number] Oral 1245 / 1245 Output: Urine 1100 / 1100 Other: # Voids 7 Date of Last Bowel Movement 03/09/18 03/09/18 # Bowel Movements 0 - Constitutional no acute distress Results - Labs CBC & Chem 7: 03/12/18 04:35 03/11/18 05:36 Laboratory Results - last 24 hr 03/11/18 03/12/18 21:51 04:35 Hgb 12.6 L Hct 36.9 L POC Glucose 119 H Assessment and Plan - Problem List (1) Status post total replacement of right hip Code(s): Z96.641 - Presence of right artificial hip joint Status: Acute - Attending Attestation Attending Attestation: Dressing dry and intact. No calf tenderness. He is neurovascularly intact to his toes. Plan is for patient to be discharged to home with home health care today and follow-up in the office next week. He is discharged in good condition.
--- NOTE | 2018-03-12 10:21 | MD ---
cc: Gera Phillips MD DATE OF DISCHARGE: 03/12/2018 ADMITTING DIAGNOSIS: Osteoarthritic degeneration, right hip. DISCHARGE DIAGNOSIS: Osteoarthritic degeneration, right hip. DISCHARGE SUMMARY: A 67-year-old male who was admitted on 03/10/2018, with osteoarthritic degeneration of right hip at which time he underwent a right total hip arthroplasty. He received a course of prophylactic IV antibiotics within 23 hours, started on anticoagulation therapy. He continued to improve, tolerating food and fluid well and was discharged the second postoperative day in good condition with instructions for home health care, physical therapy, and follow up in the office for recheck. The patient discharged with anticoagulation therapy and pain medication in good condition. Gera Phillips MD JRR/rs , 08:17 AM , 08:21 AM
[2018-03-12] MEDS: Lisinopril 10 MG Tablet PO SCH (11:01)
[2018-03-12] MEDS: Fenofibrate 145 MG Tablet PO SCH (11:01)
[2018-03-12] MEDS: Furosemide 20 MG Tablet PO SCH (11:02)
[2018-03-12] MEDS: Multivitamin/Minerals Therapeutic Tablet PO SCH ×2 (11:02→20:04)
[2018-03-12] MEDS: dilTIAZem CD 180 MG Capsule PO SCH (11:02)
[2018-03-12] MEDS: Senna/Docusate Sodium 8.6/50 MG Tablet PO SCH ×2 (11:02→20:04)
--- NOTE | 2018-03-12 11:21 | P.PN ---
Subjective Interval history: Patient seen and examined, Complains of right lower extremity tenderness next wants now to go to rehab Physical Exam Vital signs: Vital Signs 03/11/18 12:00 03/11/18 15:33 03/11/18 16:00 Temperature 98.6 F 99.2 F Pulse Rate 110 H 101 H 101 H Respiratory Rate 20 16 18 Blood Pressure 119/71 120/57 L Pulse Oximetry 99 98 03/11/18 16:52 03/11/18 20:00 03/12/18 00:00 Temperature 98.6 F 100.2 F H Pulse Rate 111 H 107 H Respiratory Rate 19 19 Blood Pressure 116/59 L 128/58 L Pulse Oximetry 98 99 100 03/12/18 00:18 03/12/18 02:00 03/12/18 04:00 Temperature 99.4 F Pulse Rate 96 H Respiratory Rate 19 19 18 Blood Pressure 141/63 H Pulse Oximetry 98 03/12/18 08:00 03/12/18 10:58 Temperature 99.1 F Pulse Rate 103 H Respiratory Rate 18 Blood Pressure 143/65 H Pulse Oximetry 95 96 Intake & Output 03/11/18 03/12/18 03/12/18 18:59 06:59 18:59 Intake Total 2245 / 2245 Output Total 1100 / 1100 Balance 2245 / 2245 -1100 / -1100 Weight 111 kg Intake: IV 1000 / 1000 LR 1000 mL Inj 1,000 ML @ 80 1000 / 1000 mls/hr IV.CONT .[id number] [facility] Rx# :[id number] Oral 1245 / 1245 Output: Urine 1100 / 1100 Other: # Voids 7 Date of Last Bowel Movement 03/09/18 03/09/18 # Bowel Movements 0 Narrative: GENERAL: NAD SKIN: Warm and dry. HEAD: Normocephalic. EYES: No scleral icterus. No injection or drainage. NECK: Supple, trachea midline. No JVD or lymphadenopathy. CARDIOVASCULAR: Regular rate and rhythm without murmurs, gallops, or rubs. RESPIRATORY: Breath sounds equal bilaterally. No accessory muscle use. GASTROINTESTINAL: Abdomen soft, non-tender, nondistended. MUSCULOSKELETAL: No cyanosis, or edema. BACK: Nontender without obvious deformity. No CVA tenderness. Results - Labs CBC & Chem 7: 03/12/18 04:35 03/11/18 05:36 Laboratory Results - last 24 hr 03/11/18 03/12/18 03/12/18 21:51 04:35 09:01 Hgb 12.6 L Hct 36.9 L POC Glucose 119 H 137 H Assessment and Plan - Plan 67-year-old man with Right hip OA Status post right total hip arthroplasty March 10, 2018 Management per orthopedic surgery Pain management accordingly Eliquis for DVT prophylaxis PT to treat and eval Hypoxia-resolved Shortness of breath-resolved Encourage incentive spirometry use, DuoNeb as needed Diabetes type 2 Continue metformin and insulin sliding scale with fingerstick blood glucose monitoring History of CAD, hypertension, hyperlipidemia and other chronic medical conditions Continue outpatient medications DVT prophylaxis: Eliquis
[2018-03-12] MEDS: Famotidine 20 MG Tablet PO SCH (20:04)
[2018-03-13] MEDS: Sodium Chloride 0.65% Nasal Spray 45 ML Bottle EACH NARE SCH ×3 (01:00→10:30)
[2018-03-13] MEDS: Multivitamin/Minerals Therapeutic Tablet PO SCH (09:21)
[2018-03-13] MEDS: dilTIAZem CD 180 MG Capsule PO SCH (09:22)
[2018-03-13] MEDS: Lisinopril 10 MG Tablet PO SCH (09:22)
[2018-03-13] MEDS: Furosemide 20 MG Tablet PO SCH (09:22)
[2018-03-13] MEDS: Fenofibrate 145 MG Tablet PO SCH (09:22)
--- NOTE | 2018-03-13 09:29 | P.PN ---
Subjective Interval history: Follow-up for right hip osteoarthritis status post right total hip arthroplasty. Patient is doing well. No acute concerns. Patient is being discharged to SNF today. Physical Exam Vital signs: Vital Signs 03/12/18 10:58 03/12/18 12:00 03/12/18 16:00 Temperature 100.6 F H 99.6 F Pulse Rate 111 H 117 H Respiratory Rate 18 18 Blood Pressure 157/69 H 132/62 Pulse Oximetry 96 96 96 03/12/18 20:00 03/13/18 00:00 03/13/18 02:00 Temperature 99.4 F 98.1 F Pulse Rate 108 H 89 Respiratory Rate 18 18 17 Blood Pressure 141/73 H 110/60 Pulse Oximetry 97 96 03/13/18 04:00 Temperature 97.8 F Pulse Rate 99 H Respiratory Rate 17 Blood Pressure 134/71 Pulse Oximetry 97 Intake & Output 03/12/18 03/13/18 03/13/18 18:59 06:59 18:59 Output Total 600 / 600 1275 / 1275 Balance -600 / -600 -1275 / -1275 Weight 110.7 kg Output: Urine 600 / 600 1275 / 1275 Other: # Voids 4 Date of Last Bowel Movement 03/09/18 03/09/18 # Bowel Movements 1 Narrative: GENERAL: NAD SKIN: Warm and dry. HEAD: Normocephalic. EYES: No scleral icterus. No injection or drainage. NECK: Supple, trachea midline. No JVD or lymphadenopathy. CARDIOVASCULAR: Regular rate and rhythm without murmurs, gallops, or rubs. RESPIRATORY: Breath sounds equal bilaterally. No accessory muscle use. GASTROINTESTINAL: Abdomen soft, non-tender, nondistended. MUSCULOSKELETAL: No cyanosis, or edema. BACK: Nontender without obvious deformity. No CVA tenderness. Results - Labs CBC & Chem 7: 03/12/18 04:35 03/11/18 05:36 Laboratory Results - last 24 hr 03/12/18 03/12/18 16:57 20:02 POC Glucose 142 H 144 H Assessment and Plan - Plan 67-year-old man with Right hip OA Status post right total hip arthroplasty March 10, 2018 Eliquis for DVT prophylaxis Hypoxia-resolved Shortness of breath-resolved Encourage incentive spirometry use, DuoNeb as needed Diabetes type 2 Continue metformin and insulin sliding scale with fingerstick blood glucose monitoring History of CAD, hypertension, hyperlipidemia and other chronic medical conditions Continue outpatient medications DVT prophylaxis: Lan Checked [employer] database. Patient was given 7 days of pain meds by the orthopedic surgeon, Rx filled on 03/09/2018. Patient is going to SNF. We will give him 3 days of pain meds to be used at the SNF.
[2018-03-13 10:28] VITALS: BP 113/56; PULSE 102; RESP 20; TEMP 97.9; O2SAT 95
[2018-03-13] MEDS: Senna/Docusate Sodium 8.6/50 MG Tablet PO SCH (10:30)
== END 2018-03-13 12:20 ==
LOC: HSDI 05:19 → N06 14:11
PROVIDERS: ADMIT Surgery; ATTEND Surgery